=== PATIENT | female | born 1980 | race Caucasian/White ===

== ENCOUNTER 2019-05-06 15:41 | Emergency (ER) | payer SELFPAY ==
[~2019-05-06] VITALS: Ht 167.6 cm; Wt 131.8 kg
[2019-05-06 15:51] VITALS: Ht 167.6 cm; Wt 131.8 kg
[2019-05-06 17:59] VITALS: BP 132/80
== END 2019-05-06 18:00 | disposition home or self-care (01) ==
LOC: D.ER 15:41
DX: S93.401A Sprain of unspecified ligament of right ankle, initial encounter (principal); W18.42XA Slipping, tripping and stumbling without falling due to stepping into hole or opening, initial encounter; Y93.01 Activity, walking, marching and hiking; Y92.009 Unspecified place in unspecified non-institutional (private) residence as the place of occurrence of the external cause; I10 Essential (primary) hypertension